=== PATIENT | male | born 1995 | race Caucasian/White ===

== ENCOUNTER 2019-05-26 20:17 | Emergency (ER) | payer OTHER ==
[2019-05-26 20:34] VITALS: BP 136/76
[2019-05-26] MEDS ORDERED: LIDOCAINE 1% INJ-PF (10 MG/ML) 30 ML SDV INJ ONE (21:02)
--- NOTE | 2019-05-26 21:11 | ER Document Report ---
HPI - HPI Time Seen by Provider: 05/26/19 20:58 Pain Level: 4 Notes: Patient is a 23-year-old male with no significant past medical history who presents complaining of laceration to his left dorsal proximal first toe after he dropped a hatchet on his foot. Patient states that he is able to ambulate without difficulty. He is able to move his toes normally. He has no other concerns or complaints. Last tetanus was less than 5 years ago. Denies drug allergies. Denies any headache, fever, URI, sore throat, chest pain, palpitations, syncope, cough, shortness of breath, wheeze, dyspnea, abdominal pain, nausea/vomiting/diarrhea, urinary retention, dysuria, hematuria, loss of control of bowel or bladder, numbness/tingling, muscle paralysis/weakness, or rash. - ROS Systems Reviewed and Negative: Yes All other systems reviewed and negative Past Medical History - Social History Smoking Status: Never Smoker Chew tobacco use (# tins/day): No Frequency of alcohol use: None Drug Abuse: None Family History: Reviewed & Not Pertinent Patient has suicidal ideation: No Patient has homicidal ideation: No Renal/ Medical History: Denies: Hx Peritoneal Dialysis Vertical Provider Document - CONSTITUTIONAL Agree With Documented VS: Yes Notes: PHYSICAL EXAMINATION: GENERAL: Well-appearing, well-nourished and in no acute distress. LUNGS: Breath sounds clear to auscultation bilaterally and equal. No wheezes rales or rhonchi. HEART: Regular rate and rhythm without murmurs, rubs, gallops. Musculoskeletal: Lt foot: + linear superficial 3cm laceration proximal dorsal foot near 1st MTP joint. No ecchymosis or deformity. FROM to passive/active. Strength 5+/5. N/V intact distal. No bony tenderness of the foot. Achilles intact. Extremities: No cyanosis, clubbing, or edema b/l. Peripheral pulses 2+. Capillary refill less than 3 seconds. NEUROLOGICAL: Normal speech, normal gait. Normal sensory, motor exams PSYCH: Normal mood, normal affect. SKIN: Warm, Dry, normal turgor, no rashes or lesions noted. - INFECTION CONTROL TRAVEL OUTSIDE OF THE [place] IN LAST 30 DAYS: No Course - Re-evaluation Re-evalutation: 05/26/19 22:27 Patient is an afebrile, well-hydrated, 23-year-old male who presents to the ED with a laceration to his left dorsal foot near MTP joint 1st digit. Vitals are acceptable. PE is otherwise unremarkable for any neurovascular compromise, obvious tendon/ligament rupture, obvious fracture/dislocation, septic joint. XR unremarkable. Patient is nontoxic-appearing and is tolerating p.o. without difficulties. Wound was thoroughly irrigated and cleansed. Wound edges were approximated appropriately utilizing 2 horizontal sutures and 3 simple interrupted sutures. Wound dressing was placed and wound instructions reviewed. Patient tolerated procedure well without any complications. No further labs or imaging warranted. Sutures will need removed in 10 days. Recheck with your PCM in 2-3 days. Consider consult orthopedics if needed. Return to the ED with any worsening/concerning symptoms otherwise as reviewed in discharge. Patient is in agreement. - Vital Signs Vital signs: Temp Pulse Resp BP Pulse Ox 98.1 F 75 20 136/76 H 97 05/26/19 20:32 05/26/19 20:32 05/26/19 20:32 05/26/19 20:32 05/26/19 20:32 Procedures - Laceration/Wound Repair Left Foot Time completed: 22:25 Wound length (cm): 3 Wound's Depth, Shape: Superficial, Linear Laceration pre-procedure: Sterile PPE donned, Sterile drapes applied, Other - chlorhexadine/saline Anesthetic type: 1% Lidocaine Volume Anesthetic (mLs): 6 Wound explored: Clean, No foreign body removed Irrigated w/ Saline (mLs): 200 Wound Debrided: none Wound Repaired With: Sutures Suture Size/Type: 4:0, Nylon Number of Sutures: 5 - 2 horizontal mattress, 3 simple Layer Closure?: No Post-procedure wound care: Sterile dressing applied Post-procedure NV exam normal: Yes Complications: No Discharge - Discharge Clinical Impression: Laceration of foot, left Qualifiers: Encounter type: initial encounter Qualified Code(s): S91.312A - Laceration without foreign body, left foot, initial encounter Condition: Stable Disposition: HOME, SELF-CARE Instructions: Laceration Care ([facility]), Prophylactic Antibiotic ([facility]), Antibiotic Ointment Protection ([facility]), Soap Cleansing ([facility]) Additional Instructions: Do not shower or bathe for 24 hours. After 24 hours you may shower but no submersion of the wound under water. Keep the original dressing on the wound for 24 hours unless the drainage soaks through. Change the dressing daily thereafter and keep the knots of the suture material clean from any dried discharge. You may leave the wound open to the air once there is no more discharge. See your PCM in 2-3 days for a recheck. Monitor for any signs of worsening pain or redness, purulent drainage, streaks, and/or fever. Return to the ED if noticing any of the above symptoms or as needed. Take medications as directed. Your sutures will need to be removed in 10 days. Prescriptions: Amox Tr/Potassium Clavulanate [Augmentin 875-125 Tablet] 1 tab PO BID 10 Days #14 tablet Forms: Elevated Blood Pressure, Return to Work Referrals: [facility] [Provider Group] - Follow up as needed
--- NOTE | 2019-05-26 21:34 | RADIOLOGY REPORT (SQ) ---
EXAM DESCRIPTION: Left foot RadLex: XR FOOT 3 OR MORE VIEWS Views: 3 CLINICAL HISTORY: 23 years Male, laceration by hatchet left prox 1st digit COMPARISON: None. FINDINGS: Negative for acute fracture, dislocation, or radiopaque foreign body. There is focal soft tissue injury medial to the 1st MTP joint and proximal phalanx. No cortical disruption. IMPRESSION: 1. Soft tissue injury adjacent to the great toe, without acute bone findings
== END 2019-05-26 22:50 | disposition home or self-care (01) ==
LOC: ER 20:17
DX: S91.312A Laceration without foreign body, left foot, initial encounter (principal); W27.0XXA Contact with workbench tool, initial encounter
CPT/HCPCS: 99283; 73630; 12002; J3490